=== PATIENT | female | born 1975 | race Asian ===

== ENCOUNTER 2023-02-24 09:03 | Emergency (ER) | payer BC ==
[2023-02-24 10:06] LABS: #Eosinphils 0.1 10x3/uL (0.0-0.5); #Monocytes 0.2 10x3/uL (0.0-1.1); #Neutrophils 6.8 10x3/uL (1.5-8.4); %Basophils 0.3 % (0.0-2.0); %Eosinophils 0.9 % (0.0-6.0); %Lymphocytes 8.4 % (18.0-47.0); %Monocytes 2.2 % (0.0-10.0); %Neutrophils 86.9 % (40.0-75.0); Hemoglobin 10.2 g/dL (12.0-15.5); Mean Corpuscular HGB CONC 30.5 g/dL (32.0-36.0); Mean Corpuscular Hemoglobin 22.9 pg (27.0-33.0); Mean Corpuscular Volume 75.1 fl (81.6-98.3); Mean Platelet Volume 9.6 fl (7.4-10.4); Platelet Count 314 10x3/uL (150-450); RBC Distribution Width 15.2 % (11.5-14.5); Red Blood Cell (RBC) Count 4.45 10x6/uL (3.90-5.03); White Blood Cell (WBC) Count 7.8 10x3/uL (3.5-10.5)
[2023-02-24 10:10] LABS: ALT (SGPT) 18 U/L (8-55); AST (SGOT) 13 U/L (5-34); Albumin 3.6 g/dL (3.5-5.0); Alkaline Phosphatase 54 U/L (40-110); Anion Gap 12 mmol/L (10-20); BUN (Urea Nitrogen) 17 mg/dL (7.0-18.7); Bilirubin, Total 0.7 mg/dL (0.2-1.2); CK (CPK) 16 U/L (29-168); Calc. Creatinine Clearance 0 mL/min (70-130); Calcium 8.8 mg/dL (7.8-10.44); Carbon Dioxide 27 mmol/L (22-29); Chloride 101 mmol/L (98-107); Estimated GFR 86; Globulin 3.2 g/dL (2.4-3.5); Glucose 92 mg/dL (70-105); Lipase 74 U/L (8-78); Potassium 4.2 mmol/L (3.5-5.1); Protein, Total 6.8 g/dL (6.0-8.3); Sodium 136 mmol/L (136-145)
[2023-02-24 10:22] LABS: Bilirubin Neg (Negative); Blood, Urine 25 (Negative); Clarity Slightly Cloudy (Clear); Glucose, Urine (Dipstick) Normal (Negative); Ketone, Urine Negative (Negative); Leukocyte 500 (Negative); Nitrite Negative (Negative); Protein, Urine (Dipstick) 15 mg/dl (Neg-Trace); Urobilinogen Normal mg/dL (Less than 2)
[2023-02-24 10:30] LABS: SARS-CoV-2 NAA Rapid Test Not Detected (NotDetected)
[2023-02-24 10:34] LABS: CAUTI Indications for Culture Fever or rigors; RBC/HPF 0-3 HPF (0-3); WBC/HPF 21-50 HPF (0-3)
[2023-02-24 10:35] LABS: Bacteria/HPF 3+ HPF (None Seen); Squamous Epithelial 0-3 HPF (0-3)
[2023-02-24 10:36] LABS: Urine Culture Reflex Yes Yes
== END 2023-02-24 11:10 | disposition home or self-care (01) ==
LOC: EEVIPCON 09:03 → CSHERS 09:03
DX: R50.9 Fever, unspecified (principal); N39.0 Urinary tract infection, site not specified; Z20.822 Contact with and (suspected) exposure to COVID-19
CPT/HCPCS: 36415; 71045; 80053; 81001; 82550; 83605; 83690; 84484; 85025; 87040; 87077; 87086; 87186; 93005